=== PATIENT | female | born 1960 | race Caucasian/White ===

== ENCOUNTER 2024-03-15 11:59 | Emergency (ER) | payer OTHER, BC, SELFPAY ==
[2024-03-15 12:11] VITALS: BP 117/78; PULSE 81; RESP 14; TEMP 36.8; O2SAT 92
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
[2024-03-15] MEDS: Normal Saline 1,000 ML 125 ML IV (14:30)
[2024-03-15] MEDS: Ketorolac 15 MG/ML VIAL IVP (14:37)
[2024-03-15] MEDS: ACETAMINOPHEN 1,000 MG/100 ML BTL 400 MG IVPB (14:38)
[2024-03-15 14:39] LABS: Abs Immature Grans 0.04 10^3/uL (0.0-0.06); Absolute Basophil Count 0.05 10^3/uL (0.0-0.2); Absolute Eosinophil Count 0.05 10^3/uL (0.0-0.7); Absolute Lymphocyte Count 1.75 10^3/uL (1.2-3.4); Absolute Monocyte Count 0.57 10^3/uL (0.1-0.8); Absolute Neutrophil Count 10.42 10^3/uL (1.2-6.7); Basophils % 0.4 %; Eosinophils % 0.4 %; HCT 41.5 % (36.0-46.0); HGB 13.7 g/dL (11.2-15.7); Immature Grans % 0.3 %; Lymphocytes % 13.6 %; MCV 91 fL (80-95); MPV 11.1 fL (8.0-11.0); Monocytes % 4.4 %; Neutrophils % 80.9 %; Platelet Count 275 10^3/uL (130-400); RBC 4.56 10^6/uL (3.93-5.22); RDW 12.4 % (11.7-14.6); RDW-SD 40.9 fL; WBC 12.88 10^3/uL (4.4-10.8)
[2024-03-15 14:50] LABS: ALT 49 U/L (14-59); AST 27 U/L (15-37); Albumin 4.2 g/dL (3.4-5.0); Alkaline Phosphatase 62 U/L (46-116); Anion Gap 10.3 mmol/L (3-11); BUN 21 mg/dL (7-18); Bilirubin, Total 0.5 mg/dL (0.2-1.0); CO2 24.7 mmol/L (21.0-32.0); CREATININE 0.7 mg/dL (0.55-1.02); Calcium 9.1 mg/dL (8.5-10.1); Chloride 104 mmol/L (98-107); Estimated GFR 97.12 (mL/min/1.73m2); Glucose 102 mg/dL (74-106); Sodium 139 mmol/L (136-145); Total Protein 7.4 g/dL (6.4-8.2)
--- NOTE | 2024-03-15 15:30 | DI.RAD_ITS ---
Exam(s) XR ANKLE RT COMPLETE EXAM: XR ANKLE RT COMPLETE CLINICAL HISTORY: post reduction. TECHNIQUE: 2D digital imaging was performed. Three views. COMPARISON: CR,XR XR ANKLE RT COMPLETE from 03/15/2024 FINDINGS: A cast has been placed. There is improved alignment of the bimalleolar fractures. The ankle mortise now appears congruent. IMPRESSION: Improvement in alignment of bimalleolar fractures. DATA REPOSITORY: RADIATION DOSE DELIVERED:
--- NOTE | 2024-03-15 15:46 | DI.VRAD_ITS ---
PROCEDURE INFORMATION: Exam: XR Right Ankle Exam date and time: 03/15/2024 2:59 PM Age: 63 years old Clinical indication: Other: Prior pe, noncompliant, tachycardia, fever TECHNIQUE: Imaging protocol: Radiologic exam of the right ankle. Views: 3 or more views. COMPARISON: No relevant prior studies available. FINDINGS: Bones/joints: Oblique and displaced fracture of the medial malleolus. Fracture extends into the joint space. Oblique, displaced and comminuted fracture of the distal fibula with extension into the ankle joint space. Mild medial translation of the tibia in relation to the talus. No definite posterior distal tibia fracture. Soft tissues: Soft tissue swelling. IMPRESSION: Oblique and displaced fractures of the medial and distal fibula. Medial translation of the tibia in relation to the talus. Dictated and Authenticated by: Carmelo Kessler MD. Ordering:ILEANA Irving MD
--- NOTE | 2024-03-15 15:47 | DI.VRAD_ITS ---
PROCEDURE INFORMATION: Exam: XR Right Tibia and Fibula Exam date and time: 03/15/2024 3:00 PM Age: 63 years old Clinical indication: Other: Prior pe, noncompliant, tachycardia, fever TECHNIQUE: Imaging protocol: Radiologic exam of the right tibia and fibula. Views: 2 views. COMPARISON: CR XR ANKLE RT COMPLETE 03/15/2024 2:59 PM FINDINGS: Bones/joints: The proximal tibia and fibula are intact. There is an oblique displaced fracture of the distal fibula. Oblique displaced fracture of the medial malleolus. Soft tissues: Soft tissue swelling. IMPRESSION: Oblique displaced fractures of the distal fibula and medial malleolus. Dictated and Authenticated by: Carmelo Kessler MD. Ordering:ILEANA Irving MD
--- NOTE | 2024-03-15 16:01 | DI.VRAD_ITS ---
PROCEDURE INFORMATION: Exam: XR Right Ankle Exam date and time: 03/15/2024 3:55 PM Age: 63 years old Clinical indication: Other: Post reduction TECHNIQUE: Imaging protocol: Radiologic exam of the right ankle. Views: 3 or more views. COMPARISON: CR XR ANKLE RT COMPLETE 03/15/2024 2:59 PM FINDINGS: Bones/joints: Interval reduction of the ankle. Much improved alignment of medial malleolus and distal fibular fractures. Soft tissues: Soft tissue swelling. IMPRESSION: Interval reduction of the ankle fractures and subluxation. Dictated and Authenticated by: Carmelo Kessler MD. Ordering:ILEANA Irving MD
[2024-03-15 16:23] VITALS: BP 155/91; PULSE 72; RESP 14; TEMP 36.7; O2SAT 95
== END 2024-03-15 16:29 | disposition home or self-care (01) ==
PROVIDERS: Emergency Provider Emergency Medicine
DX: S82.51XA Displaced fracture of medial malleolus of right tibia, initial encounter for closed fracture (principal); S82.61XA Displaced fracture of lateral malleolus of right fibula, initial encounter for closed fracture; V00.831A Fall from motorized mobility scooter, initial encounter
CPT/HCPCS: 27810; 29515; 80053; 96361; 96374; 96375; 99284; 73590; 73610; 85025; 99283; J0131; J1885